=== PATIENT | female | born 1990 | race Hispanic/Latino ===

== ENCOUNTER → 2021-06-20 | Outpatient (CLI) | payer BC | END | disposition home or self-care (01) | LOC: RAH 08:37 | PROVIDERS: ATTEND Internal Medicine | DX: E04.1 Nontoxic single thyroid nodule (principal); E07.89 Other specified disorders of thyroid | CPT/HCPCS: 76536 ==

== ENCOUNTER 2022-09-27 00:23 | Emergency (ER) | payer BC, OTHER ==
[~2022-09-27] VITALS: Ht 157.5 cm; Wt 112.0 kg
[2022-09-27] MEDS ORDERED: KETOROLAC 30MG VIAL (30MG/ML) IVP ONE (01:00)
[2022-09-27] MEDS ORDERED: ONDANSETRON 4MG INJ IVP ONE (01:00)
[2022-09-27] MEDS ORDERED: LACTATED RINGERS 1000ML 1,000 ML IV ONE (01:00)
[2022-09-27 01:18] LABS: BASOPHILS % (AUTO) 0.1 % (0.0-5.0); EOSINOPHILS % (AUTO) 0.9 % (0.0-8.0); HEMATOCRIT 38.6 % (36-48); LYMPHOCYTES % (AUTO) 23.6 % (21.0-51.0); MEAN CORPUSCULAR HEMOGLOBIN 26.1 pg (27.0-33.0); MEAN CORPUSCULAR HGB CONC 32.9 g/dL (32.0-36.0); MEAN CORPUSCULAR VOLUME 79.4 fL (79-99); MONOCYTES % (AUTO) 7.8 % (3.0-13.0); NEUTROPHILS % (AUTO) 67.3 % (40.0-77.0); PLATELET COUNT (AUTO) 290 K/uL (130-400); RED BLOOD CELL COUNT(AUTO) 4.86 MIL/uL (4.00-5.50); RED CELL DISTRIBUTION WIDTH 14.1 % (11.0-15.5); WHITE BLOOD COUNT (AUTO) 9.6 K/uL (4.8-10.8)
[2022-09-27 01:25] LABS: APPEARANCE,URINE CLEAR (CLEAR); BILIRUBIN,URINE NEGATIVE (NEGATIVE); COLOR,URINE LIGHT-YELLOW (YELLOW); GLUCOSE, URINE (UA) NEGATIVE (NEGATIVE); KETONES,URINE NEGATIVE (NEGATIVE); LEUKOCYTE ESTERASE ,URINE NEGATIVE Leu/uL (NEGATIVE); NITRATE,URINE NEGATIVE (NEGATIVE); PH,URINE 5.5 (5.0-8.0); PROTEIN,URINE NEGATIVE (NEGATIVE); UROBILINOGEN,URINE 0.2 mg/dL (0.2-1.0)
[2022-09-27 01:32] LABS: ALANINE AMINOTRANSFERASE 44 U/L (12-78); ALBUMIN 3.5 g/dL (3.5-5.0); ASPARTATE AMINOTRANSFERASE 23 U/L (10-37); CARBON DIOXIDE 27 mmol/L (21-32); CHLORIDE 103 mmol/L (101-111); CREATININE 0.8 mg/dL (0.5-1.5); GLOMERULAR FILTR. RATE CALC 101 mL/min (>90); GLUCOSE,RANDOM 100 mg/dL (70-105); POTASSIUM 3.5 mmol/L (3.5-5.1); SODIUM SERUM 138 mmol/L (136-145); TOTAL PROTEIN, SERUM 7.9 g/dL (6.0-8.3); UREA NITROGEN, BLOOD 10 mg/dL (7-18)
[2022-09-27 01:34] LABS: LIPASE < 50 U/L (114-286)
[2022-09-27 01:36] LABS: HCG,QUALITATIVE URINE NEGATIVE (NEGATIVE)
[2022-09-27 01:41] LABS: MUCUS,URINE FEW LPF (None Seen); SQUAMOUS EPITHELIAL CELL,UR RARE /HPF (0-2)
[2022-09-27 02:00] VITALS: BP 128/78
[2022-09-27] MEDS ORDERED: OMEP40CA21 PO (03:15)
[2022-09-27] MEDS ORDERED: IBUP-1493 PO (03:15)
[2022-09-27] MEDS ORDERED: ONDA-104 PO (03:15)
== END 2022-09-27 04:05 | disposition home or self-care (01) ==
LOC: EDH 00:23
DX: R10.12 Left upper quadrant pain (principal); R10.32 Left lower quadrant pain; R11.2 Nausea with vomiting, unspecified; Z20.822 Contact with and (suspected) exposure to COVID-19; Z90.49 Acquired absence of other specified parts of digestive tract; Z87.442 Personal history of urinary calculi
CPT/HCPCS: 99285; 74176; 96374; 87635; 96361; 96375; 80053; 83690; 85025; 87040 ×2; 87804 ×2; 83605; 81001; 81025; 36415; C9803; J7120; J2405; J1885